=== PATIENT | female | born 2000 | race Caucasian/White ===

== ENCOUNTER 2020-08-23 19:01 | Emergency (ER) | payer OTHER ==
[~2020-08-23] VITALS: Ht 154.9 cm; Wt 66.0 kg
[2020-08-23] MEDS ORDERED: LOSA50TA14 PO (19:37)
[2020-08-23] MEDS ORDERED: [UNRECOGNIZED DRUG - OTHER] PO (19:37)
--- NOTE | 2020-08-23 19:40 | NUR ---
PATIENT RESTING IN BED. FLACC 0. REPORTS 7/10 HEAVINESS TO CHEST. S/O AT BEDSIDE. CALL [facility] IN REACH. PATIENT IN SINUS ARRHYTHMIA ON [employer]. BP REMAINS ELEVATED. WILL CONTINUE TO MONITOR
[2020-08-23] MEDS ORDERED: METOPROLOL TARTRATE 50 MG TAB ONE (20:29)
[2020-08-23] MEDS ORDERED: KETOROLAC 30 MG/1 ML IM ONE (20:30)
[2020-08-23] MEDS ORDERED: METOPROLOL TARTRATE 50 MG TAB PO ONE (20:30)
--- NOTE | 2020-08-23 20:42 | NUR ---
METOPROLOL ADMINISTERED AND EDUCATION PROVIDED TO PATIENT ABOUT THIS MEDICATION VERBALLY. TORADOL ALSO ORDERED FOR PATIENT BUT PATIENT STATES SHE DOES NOT FEEL LIKE SHE NEEDS ANYTHING FOR HER DISCOMFORT AT THIS TIME AND ALSO DOES NOT PREFER ANYTHING WITH NEEDLES. SHE KINDLY DECLINES TORADOL DOSE. SAFETY MAINTAINED. WILL CONTINUE TO EUGENIO
[2020-08-23 21:13] LABS: MEAN PLATELET VOLUME 9.3 fL (7.4-10.4); PLATELET COUNT 226 x10^3/uL (130-400); RED BLOOD COUNT 4.74 x10^6/uL (3.82-5.3)
--- NOTE | 2020-08-23 21:20 | NUR ---
PATIENT RESTING IN BED WITH S/O AT BEDSIDE. CALL [facility] IN REACH. FLACC 0 . VS REMAINS STABLE. WILL CONTINUE TO MONITOR.
[2020-08-23 21:23] LABS: ALBUMIN 3.7 g/dL (3.4-5.0); ANION GAP 5 mmol/L (5-15); CALCIUM 8.7 mg/dL (8.5-10.1); CHLORIDE 108 mmol/L (98-107); CREATININE 0.91 mg/dL (0.55-1.02)
[2020-08-23 21:27] LABS: TROPONIN I < 0.015 ng/mL (0.000-0.045)
[2020-08-23 21:46] LABS: MD YES
[2020-08-23 21:51] LABS: BASOS#(MANUAL) 0.09 x10^3/uL (0-0.1); BASOS% (MANUAL) 1 % (0-1); EOS#(MANUAL) 0.09 x10^3/uL (0.0-0.4); EOS% (MANUAL) 1 % (1-7); LYMPH#(MANUAL) 4.79 x10^3/uL (1-3.4); LYMPHS% (MANUAL) 51 % (22-44); MONOS#(MANUAL) 0.56 x10^3/uL (0.3-2.7); MONOS% (MANUAL) 6 % (2-9); REACTIVE LYMPHS # (MANUAL) 0.38 x10^3/uL (0-0); REACTIVE LYMPHS % (MANUAL) 4 % (0-0); SEG#(MANUAL) 3.48 x10^3/uL (1.8-6.8); SEGS% (MANUAL) 37 % (42-75)
--- NOTE | 2020-08-23 21:51 | NUR ---
PATIENT'S BP 111/76. DR. VILLANUEVA NOTIFIED PRIOR TO GIVING CLONIDINE. DR. VILLANUEVA INSTRUCTED ME NOT TO GIVE ORDERED CLONIDINE. WILL CONTINUE TO MONITOR.
[2020-08-23 21:55] LABS: <RBC MORPHOLOGY> NORMAL
[2020-08-23 21:56] LABS: <PLATELET ESTIMATE> ADEQUATE; LARGE PLATELETS 1+
--- NOTE | 2020-08-23 22:30 | NUR ---
DISCHARGE INSTRUCTIONS REVIEWED WITH PATIENT. ALL QUESTIONS ANSWERED TO PATIENT'S SATISFACTION. PATIENT VERBALIZED TO ME THAT DR. VILLANUEVA INSTRUCTED PATIENT TO TAKE PRIOR PRESCRIBED LOSARTAN DIRECTED AND THEN AN HOUR LATER TAKE NEW PRESCRIBED MEDICATION, METOPROLOL. ALL PERSONAL BELONGINGS WITH PATIENT ON DEPARTURE. NO IV PLACED DURING THIS ER VISIT. STEADY GAIT TO [employer]
[2020-08-23 22:38] VITALS: BP 118/79
--- NOTE | 2020-08-23 22:39 | NUR ---
PATIENT HAD ADDITIONAL QUESTIONS TO CLARIFY METOPROLOL PRESCRIPTION. PATIENT UNDERSTOOD ONE INSTRUCTION AND S/O ASSUMED INSTRUCTION DIFFERENTLY WHEN DR. VILLANUEVA REVIEWED THIS WITH PATIENT. DR. VILLANUEVA CALLED AND CLARIFICATION RECEIVED. PATIENT IS TO TAKE HER PRESCRIBED LOSRTAN DIRECTED. 1 HOUR LATER SHE WILL TAKE HER BP. IF SYSTOLIC >150 OR DIASTOLIC >85 SHE IS TO TAKE THE METOPROLOL. THIS WAS WRITTEN BY THIS RN ON DISCHARGE INSTRUCTIONS ON FIRST PAGE AND REVIEWED WITH PATIENT. PATIENT ALSO NOTIFIED ME THAT SHE HAS BEEN TAKING A FAT BURNER. I INSTRUCTED HER TO FOLLOW UP WITH THIS OTC PILL WITH HER PCP [facility] PRESCRIPTION FOR METOPROLOL AND TO CALL HER PCP IN AM. SHE ALSO UNDERSTANDS METOPROLOL IS NOT A PERMANENT PRESCIPTION UNTIL SEEN BY HER PCP. PATIENT HAD NO FURTHER QUESTIONS
== END 2020-08-23 22:43 | disposition home or self-care (01) ==
LOC: ED 21:10
DX: I10 Essential (primary) hypertension (principal); R07.89 Other chest pain; M79.10 Myalgia, unspecified site; R94.31 Abnormal electrocardiogram [ECG] [EKG]
CPT/HCPCS: 36415; 71045; 80048; 82040; 84484; 85025; 93005; 99285

== ENCOUNTER → 2020-10-24 | Outpatient (CLI) | payer OTHER ==
[~2020-10-24] MED LIST: LOSA50TA14 PO; [UNRECOGNIZED DRUG - OTHER] PO
== END | disposition home or self-care (01) ==
LOC: CVU 06:36
PROVIDERS: ATTEND Internal Medicine Cardiovascular Disease
DX: N28.0 Ischemia and infarction of kidney (principal); R07.9 Chest pain, unspecified; I10 Essential (primary) hypertension
CPT/HCPCS: 93306; 93975